=== PATIENT | female | born 1990 | race African-American/Black ===

== ENCOUNTER → 2018-09-28 | Outpatient (REF) | payer OTHER | LOC: M SFHCLERA 13:24 | PROVIDERS: ATTEND Nurse Practitioner Family | DX: R53.81 Other malaise (principal) ==

== ENCOUNTER → 2019-06-09 | Outpatient (CLI) | payer OTHER ==
--- NOTE | 2019-06-09 12:58 | REP ---
RIGHT WRIST, FOUR VIEWS: Four views of the right wrist performed. Linear calcific density on the AP view adjacent to the base of the fifth metacarpal is suspicious for a fracture at that location. Otherwise no acute fracture, dislocation or intrinsic bone disease is identified. Joint spaces appear normal. IMPRESSION: Suspect fracture base of fifth metacarpal, lateral aspect. Electronically Signed by Kishore Matute MD 06/09/2019 05:54 P
--- NOTE | 2019-06-09 13:00 | REP ---
RIGHT HAND SERIES, FOUR VIEWS: Four views of the right hand performed. There appears to be cortical irregularity at the base of the fifth metacarpal lateral aspect on the AP view. I suspect a fracture at that location. No other acute fracture, dislocation, or intrinsic bone disease is seen. Joint spaces appear normal. IMPRESSION: Suspect nondisplaced fracture at the base of fifth metacarpal. Electronically Signed by Kishore Matute MD 06/09/2019 05:55 P
== END ==
LOC: M LRY 11:16
PROVIDERS: ATTEND Nurse Practitioner Family
DX: S69.91XA Unspecified injury of right wrist, hand and finger(s), initial encounter (principal); X58.XXXA Exposure to other specified factors, initial encounter; Y92.89 Other specified places as the place of occurrence of the external cause; Y93.9 Activity, unspecified; Y99.9 Unspecified external cause status
CPT/HCPCS: 29125; 73110; 73130; G0463